=== PATIENT | female | born 1970 | race Hispanic/Latino ===

== ENCOUNTER 2019-05-20 16:04 | Emergency (ER) | payer SELFPAY ==
[2019-05-20 16:37] VITALS: BP 131/89
[2019-05-20] MEDS ORDERED: DUONEB *Not for PRN Use IH ONE (16:55)
--- NOTE | 2019-05-20 16:57 | Event Note ---
ED Screening Note Date of service: 05/20/19 Time: 16:54 ED Screening Note: This is a 48 y.o. F. that presents to the ER with dyspnea and cough for 4 days. PMH of anxiety and asthma Reports orthopnea Patient states she was taking inhaler and neb treatments but ran out. Taking naprosyn and ibuprofen. This initial assessment/diagnostic orders/clinical plan/treatment(s) is/are subject to change based on patients health status, clinical progression and re- assessment by fellow clinical providers in the ED. Further treatment and workup at subsequent clinical providers discretion. Patient/guardian urged not to elope from the ED as their condition may be serious if not clinically assessed and managed. Initial orders include: CXR Duoneb
--- NOTE | 2019-05-20 17:29 | XRay Report ---
CHEST 2 VIEWS INDICATION: dyspnea and cough. COMPARISON: None FINDINGS: Support devices: None. Heart: Within normal limits. Lungs/pleura: No acute air space or interstitial disease. No pneumothorax. Additional findings: None. IMPRESSION: 1. No acute findings. Signer Name: Shemar Galicia MD Signed: 05/20/2019 5:24 PM Workstation Name: [id number]
--- NOTE | 2019-05-20 19:36 | Emergency Department Report ---
Minor Respiratory - HPI Chief Complaint: Dyspnea/Respdistress Stated Complaint: KYLE Time Seen by Provider: 05/20/19 16:53 Duration: 8 days Pain Location: Facial Severity: mild (4/10) Minor Respiratory: Yes Rhinorrhea (nasal congestion and runny nose), Yes Able to Tolerate Fluids, Yes Cough (wet cough), Yes Shortness of Breath (with exertion), No Sore Throat, No Ear Pain (clogged ear sensation), No Sick Contacts, No Hemoptysis, No Chest Pain, No Fever Other History: This is a 48-year-old female who reports that she has a history of asthma and started off around 8 days ago with runny nose and nasal congestion and that she took jxjo-uif-ircxucu medication but it progressed into her been in bed over the last few days due to cough, weakness and wheezing. Patient says that she thinks she might have bronchitis. Denies being around anyone that has been sick. She says she just moved to [place] from [place]. Denies any chest pain but reports some shortness of breath with exertion. Denies any nausea or vomiting. Denies any abdominal or back pain. Szny-irr-xakidar medication tried without any relief. Denies any difficulty breathing, headache but report facial pain at 4/10 that feels like pressure. Patient says she takes albuterol and she has been taking albuterol nebulizer and inhaler at home without any relief. ED Review of Systems ROS: Stated complaint: KYLE Other details as noted in HPI Constitutional: denies: chills, fever ENT: congestion, other (clogged ear sensation). denies: ear pain, throat pain, epistaxis Respiratory: cough, wheezing. denies: shortness of breath, SOB with exertion, SOB at rest Cardiovascular: denies: chest pain, palpitations, dyspnea on exertion, syncope Gastrointestinal: denies: abdominal pain, nausea, vomiting Musculoskeletal: myalgia. denies: back pain, joint swelling, arthralgia Skin: denies: rash Neurological: denies: headache ED Past Medical Hx - Past Medical History Previous Medical History?: Yes Hx Asthma: Yes Additional medical history: anxiety - Surgical History Past Surgical History?: Yes Additional Surgical History: appendectomy, knee, and neck - Family History Family history: no significant - Social History Smoking Status: Current Every Day Smoker Substance Use Type: None, Marijuana - Medications Home Medications: Home Medications Medication Instructions Recorded Confirmed Last Taken Type ALBUTEROL Inhaler (OR & NICU) 2 puff IH Q6H PRN #1 inhalation 05/20/19 Unknown Rx [ProAir HFA Inhaler] ALBUTEROL NEB's [Proventil 0.083% 3 ml IH Q6H PRN #1 box 05/20/19 Unknown Rx NEBS] Azithromycin [Zithromax Z-ISAIAH] 250 mg PO DAILY 5 Days #1 pkg 05/20/19 Unknown Rx Cetirizine HCl [ZyrTEC] 10 mg PO QAM 14 Days #14 capsule 05/20/19 Unknown Rx Fluticasone [Flonase] 1 spray NS QDAY 14 Days #1 bottle 05/20/19 Unknown Rx Inhaler, Assist Devices [Space 1 each MC ONCE #1 spacer 05/20/19 Unknown Rx Chamber Plus] Prednisone [predniSONE 10 mg 10 mg PO .TAPER #1 tab.ds.pk 05/20/19 Unknown Rx (6-Day Pack, 21 Tabs)] guaiFENesin/CODEINE [Robitussin AC] 10 ml PO QHS PRN #70 oral.liqd 05/20/19 Unknown Rx Minor Respiratory Exam - Exam General: Vital signs noted. No distress. Alert and acting appropriately. This is a 48-year-old female well-nourished well-developed in no acute distress HEENT: Yes Moist Mucous Membranes (uvula midline and oral airways patent), Yes Rhinorrhea (pale and boggy with clear drainage), No Pharyngeal Erythema, No Pharyngeal Exudates, No Conjuctival Injection, No Frontal Tenderness, No Maxillary Tenderness Ear: Neither TM Bulge (middle ear effusion bilaterally), Neither TM Erythema, Neither EAC Pain, Neither EAC Discharge Neck: Yes Supple (full range of motion, nontender to palpate), No Adenopathy Lungs: Yes Good Air Exchange, Yes Wheezes (scattered wheezing to upper lung merino), Yes Ronchi (cleared with coughing), Yes Cough (congested), No Stridor, No Labored Respirations, No Retractions, No Use of Accessory Muscles, No Other Abnormal Lung Sounds Heart: Yes Regular (tachycardia 108), No Murmur Abdomen: Yes Normal Bowel Sounds (in all merino), No Tenderness, No Peritoneal Signs Skin: No Rash, No Edema Neurologic: Alert and oriented, no deficits. Musculoskeletal: Unremarkable. No cce. + 2 pulses in all extremities, no neurovascular compromise ED Course Vital Signs 05/20/19 16:35 Temperature 98.5 F Pulse Rate 108 H Respiratory 18 Rate Blood Pressure 131/89 O2 Sat by Pulse 97 Oximetry Vital Signs 05/20/19 05/20/19 05/20/19 16:35 20:21 21:06 Temperature 98.5 F Pulse Rate 108 H 92 H Pulse Rate [ 85 Anterior] Respiratory 18 16 Rate Respiratory 19 Rate [Anterior] Blood Pressure 131/89 O2 Sat by Pulse 97 99 Oximetry - Reevaluation(s) Reevaluation #1: Patient given albuterol nebulizer that was started and ordered in triage and in her lung with some wheezing. She was given additional Xopenex 1.26 mg along with Atrovent 0.5 mg nebulizer and Decadron 10 mg IM and upon reevaluation lung sounds are clear. Vital signs stable and she says she is feeling better ED Medical Decision Making - Radiology Data Radiology results: report reviewed X-ray Findings [address] [address] XRay Report Signed Patient: YESSICA FAIR MR#: [id number] : 1970 Acct:[id number] Age/Sex: 48 / F ADM Date: 05/20/19 Loc: ED Attending Dr: Ordering Physician: CARTER HONG Date of Service: 05/20/19 Procedure(s): XR chest routine 2V Accession Number(s): [id number] cc: CARTER HONG Fluoro Time In Minutes: CHEST 2 VIEWS INDICATION: dyspnea and cough. COMPARISON: None FINDINGS: Support devices: None. Heart: Within normal limits. Lungs/pleura: No acute air space or interstitial disease. No pneumothorax. Additional findings: None. IMPRESSION: 1. No acute findings. Signer Name: Shemar Galicia MD Signed: 05/20/2019 5:24 PM Workstation Name: [id number] Transcribed By: JOJO Dictated By: Shemar Galicia MD Electronically Authenticated By: Shemar Galicia MD Signed Date/Time: 05/20/191723 DD/ 21 TD/TT: - Medical Decision Making 09/15/19 21:07 48-year-old female presented to the emergency room with cough and cold symptoms. She has a history of asthma and been using albuterol nebulizer and inhaler at home which did not work. She says she also took wrrm-ylg-rgyktra medication for his congestion and drainage. Patient was evaluated and found to have allergic rhinitis with asthma bronchitis. Chest x-ray reviewed by radiologist and report reviewed by myself with normal findings. Patient vital signs stable she is afebrile. She was given albuterol nebulizer that was ordered in triage and she still had some coughing with scattered wheezing so she was given Xopenex 1.26 mg nebulizer and Atrovent 0.5 mg. She was given Decadron 10 mg IM. She says she is feeling better. Patient lung sounds clear. Heart rate is at 92 and her O2 sat is stable. I discussed diagnosis, x-ray reports and treatment plan the patient and she is in agreement. Patient is allergic to penicillin so I will send her home on Z-Isaiah, Flonase, Medrol Dosepak, refill an albuterol HFA and nebulizer, Zyrtec and Flonase. Discharged home with her family in stable conditio - Differential Diagnosis PNA, bronchitis, asthma exacerbation, URI with cough/congestion Critical care attestation.: If time is entered above; I have spent that time in minutes in the direct care of this critically ill patient, excluding procedure time. ED Disposition Clinical Impression: Bronchitis with asthma, subacute, Cough in adult Disposition: DC-01 TO HOME OR SELFCARE Is pt being admited?: No Does the pt Need Aspirin: No Condition: Stable Instructions: Asthma (ED), Acute Bronchitis (ED), Acute Cough (ED) Additional Instructions: Please follow-up E primary care physician in 2-3 days and if he do not have one you can follow-up with [facility]. Take medication as prescribed If your condition worsens, return to the emergency room otherwise follow-up as discussed Rest for 3 days and increase your fluid intake to at least 2-3 L of water daily Do not drive or operate heavy machinery while taking guaifenesin with codeine cough medicine as this medication causes drowsiness Referrals: PRIMARY CARE, [Primary Care Provider] - 2-3 Days [facility] [Outside] - 2-3 Days Forms: Work/School Release Form(ED), Accompanied Note
[2019-05-20] MEDS ORDERED: XOPENEX IH ONE (19:44)
[2019-05-20] MEDS ORDERED: ATROVENT IH ONE (19:44)
[2019-05-20] MEDS ORDERED: DECADRON IM STA (19:44)
== END 2019-05-20 21:28 | disposition home or self-care (01) ==
LOC: ED 16:04
DX: J45.909 Unspecified asthma, uncomplicated (principal); Z98.890 Other specified postprocedural states; F17.200 Nicotine dependence, unspecified, uncomplicated; F12.90 Cannabis use, unspecified, uncomplicated; Z79.899 Other long term (current) drug therapy; Z88.0 Allergy status to penicillin
CPT/HCPCS: 71046; 94640; 96372; 99283; J1100; 94644